=== PATIENT | male | born 1955 | race Caucasian/White ===

== ENCOUNTER 2016-10-16 05:21 | Emergency (ER) | payer SELFPAY ==
[~2016-10-16] VITALS: Ht 172.7 cm; Wt 73.0 kg
[2016-10-16] MEDS ORDERED: HYDROCODONE/ACETAMINOPHEN 10/325MG TABLET PO ONE (07:30)
[2016-10-16 07:39] VITALS: BP 142/71
== END 2016-10-16 09:30 | disposition home or self-care (01) ==
LOC: ER 09:01
DX: M54.9 Dorsalgia, unspecified (principal); Z98.61 Coronary angioplasty status
CPT/HCPCS: 99283